=== PATIENT | female | born 1955 | race Caucasian/White ===

== ENCOUNTER → 2017-09-08 | Outpatient (CLI) | payer BC | END | disposition home or self-care (01) | LOC: CVU 07:37 | PROVIDERS: ATTEND Internal Medicine Cardiovascular Disease | DX: R51 Headache (principal); E11.9 Type 2 diabetes mellitus without complications | CPT/HCPCS: 93880 ==

== ENCOUNTER 2017-11-10 10:47 | Observation (INO) | payer BC ==
[~2017-11-10] VITALS: Ht 160 cm; Wt 99.1 kg
[2017-11-10] MEDS ORDERED: NITROGLYCERIN SINGLE TAB 0.4 MG SL ONE (11:20)
[2017-11-10] MEDS ORDERED: ASPIRIN 81 MG TABLET CHEW ONE (11:20)
[2017-11-10] MEDS: NITROGLYCERIN SINGLE TAB 0.4 MG SL PRN ×2 (11:23→11:34)
[2017-11-10] MEDS ORDERED: ASPIRIN 81 MG TABLET CHEW PO ONE (11:30)
[2017-11-10 11:44] LABS: BASOPHILS # (AUTO) 0.02 x10^3/uL (0-0.1); BASOPHILS % (AUTO) 0 % (0-1); EOSINOPHILS # (AUTO) 0.14 x10^3/uL (0-0.4); EOSINOPHILS % (AUTO) 2 % (1-7); LYMPHOCYTES % (AUTO) 31 % (22-44); MD NO; MEAN CORPUSCULAR HEMOGLOBIN 27.4 pg (27.0-34.8); MEAN CORPUSCULAR VOLUME 83.1 fL (80-100); MEAN PLATELET VOLUME 8.7 fL (7.4-10.4); MONOCYTES % (AUTO) 7 % (2-9); NEUTROPHILS # (AUTO) 4.48 x10^3/uL (1.8-6.8); NEUTROPHILS % (AUTO) 60 % (42-75); PLATELET COUNT 247 x10^3/uL (130-400); RED BLOOD COUNT 5.18 x10^6/uL (3.82-5.3); RED CELL DISTRIBUTION WIDTH 14.8 % (9.6-15.2)
[2017-11-10] MEDS ORDERED: METOCLOPRAMIDE 5 MG/ML, 2ML ONE (11:49)
[2017-11-10] MEDS ORDERED: DIPHENHYDRAMINE 50 MG/ML, 1ML ONE (11:49)
[2017-11-10 11:51] LABS: INTERNATIONAL NORMALIZED RATIO 0.94 (0.93-1.1); PROTHROMBIN TIME 9.7 Seconds (9.6-11.5)
[2017-11-10 11:55] LABS: ALANINE AMINOTRANSFERASE 37 U/L (12-78); ALBUMIN 3.7 g/dL (3.4-5.0); ANION GAP 8 mmol/L (5-15); CALCIUM 8.9 mg/dL (8.5-10.1); CHLORIDE 104 mmol/L (98-107); CREATININE 0.89 mg/dL (0.55-1.02)
[2017-11-10 11:59] LABS: ALKALINE PHOSPHATASE 64 U/L (45-117); BILIRUBIN,TOTAL 0.8 mg/dL (0.2-1.0); TOTAL PROTEIN 7.3 g/dL (6.4-8.2); TROPONIN I < 0.015 ng/mL (0.000-0.045)
[2017-11-10] MEDS ORDERED: DIPHENHYDRAMINE 50 MG/ML, 1ML IVPush ONE (12:00)
[2017-11-10] MEDS ORDERED: METOCLOPRAMIDE 5 MG/ML, 2ML IVPush ONE (12:00)
[2017-11-10] MEDS ORDERED: SODIUM CHLORIDE FLUSH 10ML SYR IVF ONE (12:30)
[2017-11-10] MEDS ORDERED: LIRA0.6P SQ (13:01)
[2017-11-10] MEDS ORDERED: POTA10CA PO (13:01)
[2017-11-10] MEDS ORDERED: METO-93 PO (13:01)
[2017-11-10] MEDS ORDERED: RABE20TA26 PO (13:01)
[2017-11-10] MEDS ORDERED: [UNRECOGNIZED DRUG - CODE] PO (13:01)
[2017-11-10] MEDS ORDERED: ASPI-515 PO (13:01)
[2017-11-10] MEDS ORDERED: SIMV40TA3 PO (13:01)
[2017-11-10] MEDS ORDERED: OXYC-302 PO (13:01)
[2017-11-10] MEDS ORDERED: LEVO175T2 PO (13:01)
[2017-11-10] MEDS ORDERED: METO25TA91 PO (13:01)
[2017-11-10] MEDS ORDERED: HYDR25TA6 PO (13:01)
[2017-11-10] MEDS ORDERED: magnesium PO (13:01)
[2017-11-10] MEDS ORDERED: LABETALOL 5MG/ML, 20ML IVPush PRN (14:00)
[2017-11-10] MEDS ORDERED: ENOXAPARIN 40 MG/0.4 ML SQ SCH (14:00)
[2017-11-10] MEDS ORDERED: hydrALAzine 20 MG/ML, 1ML IVPush PRN (14:00)
[2017-11-10 14:21] LABS: CHOL/HDL RATIO 2.9; LDL/HDL RATIO 1.5 (0.5-3.0)
[2017-11-10 15:36] VITALS: BP 111/73
[2017-11-10] MEDS ORDERED: COLE5PAC PO (16:39)
[2017-11-10] MEDS ORDERED: NITR0.6T4 SL (16:40)
[2017-11-10] MEDS ORDERED: MULT-658 PO (16:40)
[2017-11-10 17:54] VITALS: BP 141/82
[2017-11-10 19:08] VITALS: BP 117/83
[2017-11-10 19:27] LABS: TROPONIN I < 0.015 ng/mL (0.000-0.045)
[2017-11-10] MEDS ORDERED: METOPROLOL SUCCINATE 25 MG TAB.ER.24H PO SCH (21:00)
[2017-11-10] MEDS ORDERED: SIMVASTATIN 40 MG TABLET PO SCH (21:00)
[2017-11-10] MEDS: PANTOPROZOLE 40MG TABLET PO SCH (21:09)
[2017-11-11 04:00] VITALS: BP 112/56
[2017-11-11] MEDS ORDERED: METOPROLOL SUCCINATE 50 MG TAB.ER.24H PO SCH (06:00)
[2017-11-11] MEDS ORDERED: LEVOTHYROXINE 175 MCG TABLET PO SCH (06:00)
[2017-11-11 07:00] VITALS: BP 116/81
[2017-11-11] MEDS ORDERED: REGADENOSON 0.4 MG/5 ML SYRINGE ONE (08:33)
[2017-11-11] MEDS ORDERED: CALCIUM/VITAMIN D3 250-125 TABLET PO SCH (09:00)
[2017-11-11] MEDS ORDERED: MAGNESIUM OXIDE 400 MG TABLET PO SCH (09:00)
[2017-11-11] MEDS ORDERED: HYDROCHLOROTHIAZIDE 25 MG TABLET PO SCH (09:00)
[2017-11-11] MEDS ORDERED: LIRAGLUTIDE 1.2 MG SQ SCH (09:00)
[2017-11-11] MEDS ORDERED: ASPIRIN 81 MG TABLET EC PO SCH (09:00)
[2017-11-11] MEDS: PANTOPROZOLE 40MG TABLET PO SCH (10:43)
[2017-11-11] MEDS ORDERED: ACETAMINOPHEN 325 MG TABLET PO PRN (11:00)
== END 2017-11-11 15:08 | disposition home or self-care (01) ==
LOC: ED 12:46 → EDIP 12:47 → INTOOBSV 12:47 → ED 13:09 → 5SO 14:10
PROVIDERS: ADMIT Internal Medicine Pulmonary Disease; ATTEND Internal Medicine Pulmonary Disease
DX: R07.89 Other chest pain (principal); E11.9 Type 2 diabetes mellitus without complications; E78.5 Hyperlipidemia, unspecified; I10 Essential (primary) hypertension; E03.9 Hypothyroidism, unspecified; K21.9 Gastro-esophageal reflux disease without esophagitis; Z79.82 Long term (current) use of aspirin; Z82.49 Family history of ischemic heart disease and other diseases of the circulatory system; Z83.3 Family history of diabetes mellitus; Z87.891 Personal history of nicotine dependence
CPT/HCPCS: 36415; 71045; 78452; 80053; 80061; 84484; 85025; 85610; 85730; 93005; 93017; 93306; 96374; 96376; 99285; A9502; C9898; G0378; J1200; J2765; J2785

== ENCOUNTER → 2020-06-09 | Outpatient (CLI) | payer BC ==
[~2020-06-09] MED LIST: ASPI-515 PO; COLE5PAC PO; HYDR25TA6 PO; LEVO175T2 PO; LIRA0.6P SQ; METO-93 PO; METO25TA91 PO; MULT-658 PO; NITR0.6T4 SL; OXYC-302 PO; POTA10CA PO; RABE20TA26 PO; SIMV40TA20 PO; [UNRECOGNIZED DRUG - CODE] PO; magnesium PO
== END | disposition home or self-care (01) ==
LOC: CFH 09:53
PROVIDERS: ATTEND Internal Medicine Cardiovascular Disease
DX: I35.8 Other nonrheumatic aortic valve disorders (principal); I25.10 Atherosclerotic heart disease of native coronary artery without angina pectoris; I10 Essential (primary) hypertension; E78.5 Hyperlipidemia, unspecified
CPT/HCPCS: 93306

== ENCOUNTER → 2020-09-08 | Outpatient (CLI) | payer BC ==
[~2020-09-08] MED LIST changes: +REGADENOSON 0.4 MG/5 ML SYRINGE ONE
== END | disposition home or self-care (01) ==
LOC: CFH 08:15
PROVIDERS: ATTEND Internal Medicine Cardiovascular Disease
DX: I10 Essential (primary) hypertension (principal); I25.10 Atherosclerotic heart disease of native coronary artery without angina pectoris; R60.9 Edema, unspecified
CPT/HCPCS: 78452; 93017; A9502; J2785